=== PATIENT | female | born 1980 | race Caucasian/White ===

== ENCOUNTER 2024-10-22 08:46 | Observation (INO) ==
[2024-10-22] MEDS ORDERED: oxyCODONE SR 10 mg TAB ONE (09:52)
[2024-10-22] MEDS ORDERED: Ondansetron 4 mg VIAL 2 MG/ML 2 ml VIAL ONE (09:52)
[2024-10-22] MEDS ORDERED: Scopolamine 1 mg/72hr PATCH ONE (09:52)
[2024-10-22] MEDS ORDERED: Clindamycin 900 MG/50 **NS BAG 900 MG/50 ML BAG ONE (09:53)
[2024-10-22] MEDS ORDERED: Nitro 2% OINT (Nitroglycerin) 1 INCH/PAK ONE (09:53)
[2024-10-22 09:57] LABS: ABS Basophils 0.1 10^3/uL (0.0-0.1); ABS Eosinophils 0.3 10^3/uL (0.0-0.5); ABS Lymphocytes 1.3 10^3/uL (1.0-4.8); ABS Monocytes 0.4 10^3/uL (0.0-0.9); ABS Neutrophils 3.4 10^3/uL (1.5-7.6); Eosinophil % 5.2 %; Hematocrit 38.2 % (35-45); Hemoglobin 12.8 g/dL (11.5-14.3); Lymphocyte % 24.6 %; Mean Corpuscular Hemoglobin 29.1 pg (27-33); Mean Corpuscular Hgb Conc 33.6 g/dL (31-36); Mean Corpuscular Volume 86.6 fL (80-97); Mean Platelet Volume 7.2 fL (7.5-11.2); Platelet Count 280 10^3/uL (150-450); Red Blood Count 4.42 10^6/uL (3.63-4.92); Red Cell Distribution Width 14.9 % (12-17); White Blood Count 5.4 10^3/uL (3.8-11.8)
[2024-10-22 10:08] LABS: Activated Partial Thrombo Time 30.1 seconds (26.0-38.0); INR 0.95 (0.85-1.14)
[2024-10-22 10:17] LABS: HCG Pregnancy < 0.60 mIU/mL
[2024-10-22 10:21] LABS: Anion Gap 9 mmol/L (2-16); Blood Urea Nitrogen 12 mg/dL (6-24); CO2 Carbon Dioxide 25 mmol/L (22-32); Calcium 8.7 mg/dL (8.6-10.3); Chloride 104 mmol/L (101-111); Creatinine, Serum 0.72 mg/dL (0.51-0.95); Glucose 95 mg/dL (70-100); Potassium 4.2 mmol/L (3.5-5.0); Sodium 138 mmol/L (135-145); eGFR CKD-EPI 105.7 (>60)
[2024-10-22] MEDS ORDERED: Heparin 1,000 UNIT/ML 10 ml (10,000 UNITS) CATHLAB/DIALYSIS ONE (10:54)
[2024-10-22] MEDS ORDERED: VERAPAMIL 2.5 MG/ML 2 ML VIAL ** 5 mg/2 ml ONE ×2 (10:54→12:43)
[2024-10-22] MEDS ORDERED: Lidocaine 1% MPF 5 ML VIAL ONE (10:54)
[2024-10-22] MEDS ORDERED: Iohexol 350 (CONTRAST) 100 ML PAK IV ONE (10:55)
[2024-10-22] MEDS ORDERED: nitroGLYCERIN DRIP 25,000 MCG/250 ML BTL ONE (10:55)
[2024-10-22] MEDS ORDERED: Heparin 2 UNITS/ML 1000 mls 1,000 ML IV ONE ×2 (10:55→11:52)
[2024-10-22] MEDS ORDERED: Midazolam 5 mg/5 ml VIAL 1 mg/ml 5 ml VIAL (5 mg) ONE (11:00)
[2024-10-22] MEDS ORDERED: fentaNYL 100 mcg/2 ml 50 MCG/ML VIAL ONE ×2 (11:01→12:37)
[2024-10-22] MEDS ORDERED: Prochlorperazine 5 mg/ml 2 ml VIAL (10 mg) ONE (11:45)
[2024-10-22] MEDS ORDERED: HYDROmorphone 0.5 MG/0.5 ML SYRINGE ONE ×2 (12:46→13:03)
[2024-10-22] MEDS ORDERED: HYDROmorphone 1 MG/1 ML SYRINGE ONE ×2 (14:03→16:20)
[2024-10-22] MEDS: HYDROmorphone 1 MG/1 ML SYRINGE IV SLOW PU PRN ×2 (14:05→22:15)
[2024-10-22] MEDS: Prochlorperazine 5 mg/ml 2 ml VIAL (10 mg) IV ONE (14:20)
[2024-10-22] MEDS: NS 0.9% 1000 ml BAG 1,000 ML IV SCH (14:20)
[2024-10-22] MEDS ORDERED: CMCS:Desvenlafaxine 50 mg TAB ER (NF) PO PRN (18:21)
[2024-10-22] MEDS: Famotidine IV 10 MG/ML 2 ml VIAL (20 mg) IV SLOW PU ONE (22:10)
[2024-10-23 06:20] LABS: ABS Lymphocytes 1.1 10^3/uL (1.0-4.8); ABS Monocytes 0.8 10^3/uL (0.0-0.9); ABS Neutrophils 10.1 10^3/uL (1.5-7.6); Eosinophil % 0.1 %; Hematocrit 38.3 % (35-45); Hemoglobin 12.7 g/dL (11.5-14.3); Lymphocyte % 8.9 %; Mean Corpuscular Hemoglobin 28.7 pg (27-33); Mean Corpuscular Hgb Conc 33.1 g/dL (31-36); Mean Corpuscular Volume 86.6 fL (80-97); Mean Platelet Volume 7.6 fL (7.5-11.2); Platelet Count 292 10^3/uL (150-450); Red Blood Count 4.42 10^6/uL (3.63-4.92); Red Cell Distribution Width 14.8 % (12-17); White Blood Count 12.1 10^3/uL (3.8-11.8)
[2024-10-23 06:41] LABS: Calcium 8.8 mg/dL (8.6-10.3); Creatinine, Serum 0.67 mg/dL (0.51-0.95); Magnesium 1.8 mg/dL (1.9-2.7); Potassium 4.1 mmol/L (3.5-5.0); eGFR CKD-EPI 110.5 (>60)
[2024-10-23 10:12] VITALS: BP 155/100
[2024-10-23] MEDS: NS 0.9% 1000 ml BAG 1,000 ML IV ONE (10:20)
[2024-10-23] MEDS: HYDROcodone/ACETAMIN 5/325 mg TAB PO PRN (11:05)
[2024-10-23] MEDS: CMCS: Ketorolac 10 mg TAB (NF) PO SCH (11:07)
== END 2024-10-23 13:15 | disposition home or self-care (01) ==
LOC: CHICATH 08:46 → MED 08:46
PROVIDERS: ADMIT Student in an Organized Health Care Education/Training Program; ATTEND Hospitalist
PROC: ANG.UFE (2024-10-22 10:00)